=== PATIENT | male | born 1935 | race Two or more races ===

== ENCOUNTER 2021-05-29 06:43 | Day surgery (SDC) | payer OTHER | END 2021-05-29 14:10 | disposition home or self-care (01) | LOC: CIR.AMB 06:43 | PROVIDERS: ATTEND Orthopaedic Surgery Hand Surgery | DX: G56.01 Carpal tunnel syndrome, right upper limb (principal); M65.321 Trigger finger, right index finger; Z20.822 Contact with and (suspected) exposure to COVID-19 ==